=== PATIENT | female | born 1980 | race Caucasian/White ===

== ENCOUNTER 2016-08-29 10:10 | Emergency (ER) | payer OTHER ==
[~2016-08-29] VITALS: Ht 167.6 cm; Wt 63.5 kg
[2016-08-29 10:35] VITALS: BP 142/98
--- NOTE | 2016-08-29 10:49 | NUR ---
Patient ambulated to bed 03.
--- NOTE | 2016-08-29 11:06 | NUR ---
Dr. Valdovinos evaluating patient at bedside.
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
--- NOTE | 2016-08-29 11:15 | NUR ---
PT AAOX4. NO ACUTE DISTRESS NOTED AT THIS TIME. PT WENT TO CT SCAN ACCOMPANIED BY X-RAY TECH.
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
--- NOTE | 2016-08-29 11:35 | NUR ---
PT BACK FROM CT SCAN. NO ACUTE DISTRESS NOTED AT THIS TIME.
--- NOTE | 2016-08-29 12:09 | NUR ---
PT ASKED FOR WATER. NOTIFIED DR BONDS. SAYS OKAY TO GIVE WATER. NO ACUTE DISTRESSS NOTED AT THIS TIME.WILL CONTINUE TO MONITOR PT.
--- NOTE | 2016-08-29 12:17 | NUR ---
DR BONDS AT BEDSIDE
[2016-08-29 13:45] VITALS: BP 128/82
--- NOTE | 2016-08-29 13:45 | NUR ---
Patient discharged with v/s stable. Written and verbal after care instructions given and explained. Patient verbalized understanding. Ambulatory with steady gait. All questions addressed prior to discharge. Advised to follow up with PMD.
== END 2016-08-29 13:45 | disposition home or self-care (01) ==
LOC: MED 10:10
DX: S00.83XA Contusion of other part of head, initial encounter (principal); W03.XXXA Other fall on same level due to collision with another person, initial encounter; Y93.89 Activity, other specified; Y92.89 Other specified places as the place of occurrence of the external cause; Y99.8 Other external cause status; F17.210 Nicotine dependence, cigarettes, uncomplicated

== ENCOUNTER 2018-07-21 10:00 | Emergency (ER) | payer OTHER ==
[~2018-07-21] VITALS: Ht 167.6 cm; Wt 77.7 kg
[2018-07-21 10:14] VITALS: BP 123/81
[2018-07-21 10:49] LABS: BASOPHILS % (AUTO) 0.5 % (0.0-2.0); EOSINOPHILS # (AUTO) 0.2 K/uL (0-0.4); EOSINOPHILS % (AUTO) 3.9 % (0.0-4.0); HEMATOCRIT 42.8 % (36-48); HEMOGLOBIN 13.9 g/dL (12.0-16.0); LYMPHOCYTES % (AUTO) 31.5 % (20.5-51.1); MEAN CORPUSCULAR HEMOGLOBIN 29 pg (27-31); MEAN CORPUSCULAR HGB CONC 33 g/dL (33-37); MEAN CORPUSCULAR VOLUME 87.8 fL (80-94); MONOCYTES # (AUTO) 0.4 K/uL (0.8-1.0); MONOCYTES % (AUTO) 6.6 % (1.7-9.3); NEUTROPHILS # (AUTO) 3.6 K/uL (1.8-7.7); NEUTROPHILS % (AUTO) 57.5 % (42.2-75.2); PLATELET COUNT (AUTO) 209 K/uL (140-450); RED BLOOD CELL COUNT(AUTO) 4.88 MIL/uL (4.20-5.40); RED CELL DISTRIBUTION WIDTH 14.1 % (11.6-13.7); WHITE BLOOD COUNT (AUTO) 6.2 K/uL (4.8-10.8)
[2018-07-21 10:54] LABS: APPEARANCE,URINE CLEAR (CLEAR); COLOR,URINE YELLOW (YELLOW); PH,URINE 7.5 (5.0-9.0)
[2018-07-21 10:55] LABS: BILIRUBIN,URINE NEGATIVE (NEGATIVE); BLOOD, URINE NEGATIVE (NEGATIVE); LEUKOCYTE ESTERASE ,URINE NEGATIVE (NEGATIVE); NITRITE, URINE NEGATIVE (NEGATIVE); UGLUCOSE NEGATIVE (NEGATIVE)
[2018-07-21 11:00] LABS: SODIUM SERUM 140 mmol/L (136-145)
[2018-07-21 11:01] LABS: ANION GAP 10.8 (8-16); CARBON DIOXIDE 30.1 mmol/L (21-32); CHLORIDE 103 mmol/L (98-107); CREATININE 0.6 mg/dL (0.6-1.3); GFR ARICAN-AMERICAN 144 mL/min (>90); GLUCOSE 74 mg/dL (74-106); POTASSIUM 3.9 mmol/L (3.5-5.1); UREA NITROGEN, BLOOD 8 mg/dL (7-18)
[2018-07-21 11:04] LABS: ACETAMINOPHEN < 0.5 ug/ml (10-30); ALBUMIN 3.8 g/dL (3.4-5.0); ASPARTATE AMINOTRANSFERASE 18 U/L (15-37); SALICYLATE < 2.8 mg/dL (2.8-20.0); TOTAL BILIRUBIN 0.4 mg/dL (0.0-1.0)
[2018-07-21 12:06] VITALS: BP 123/81
== END 2018-07-21 12:07 | disposition home or self-care (01) ==
LOC: MED 10:00
DX: Z02.89 Encounter for other administrative examinations (principal); F41.9 Anxiety disorder, unspecified; Z88.0 Allergy status to penicillin; Y90.0 Blood alcohol level of less than 20 mg/100 ml
CPT/HCPCS: 36415; 80053; 81003; 81025; 85025; 93005; 99284; G0480; G0482

== ENCOUNTER 2023-07-16 00:33 | Emergency (ER) | payer BC, OTHER ==
[~2023-07-16] VITALS: Ht 165.1 cm; Wt 64.0 kg
[2023-07-16 00:46] VITALS: BP 113/82; PULSE 82; RESP 16; TEMP 98.2; O2SAT 99
[2023-07-16] MEDS ORDERED: ACET-10509 PO (01:34)
[2023-07-16] MEDS ORDERED: IBUP-2213 PO (01:34)
== END 2023-07-16 01:58 | disposition home or self-care (01) ==
LOC: MED 00:33
DX: S00.83XA Contusion of other part of head, initial encounter (principal); K02.9 Dental caries, unspecified; W52.XXXA Crushed, pushed or stepped on by crowd or human stampede, initial encounter; Y93.89 Activity, other specified; Y92.89 Other specified places as the place of occurrence of the external cause; Y99.8 Other external cause status
CPT/HCPCS: 99282